=== PATIENT | female | born 1985 | race Caucasian/White ===

== ENCOUNTER 2020-06-28 09:56 | Outpatient (REF) | payer MEDICAID, SELFPAY ==
[2020-06-29 15:42] LABS: COVID-19 RT-PCR UVMMC Result Negative (Negative)
== END 2020-06-28 09:57 | disposition home or self-care (01) ==
LOC: NCHCN 09:56
PROVIDERS: PCP Internal Medicine; Visit Provider Internal Medicine
DX: Z20.822 Contact with and (suspected) exposure to COVID-19 (principal)
CPT/HCPCS: U0003

== ENCOUNTER 2023-08-28 16:51 | Outpatient (REF) | payer MEDICAID, SELFPAY ==
--- NOTE | 2023-08-28 15:15 | PAPFT_PTH ---
PATIENT: Rylie Gabriel [facility] U#:[id number] AGE/SX: 38/F ROOM: RE08/28/[address]: Dom Queen : 1985 BED: DIS: 08/28/2023 SPEC #: [id number] RECD: 08/28/23 18:36 STATUS: MAK REBlanca #: [id number] ELIDA: 08/28/23 15:[address]: Dom Queen DEPT: [facility] Cytology RECD BY: Roula Shaw Tissues: 1 - CX/ENDOCX FOR PAP SMEARS Procedures: PAP THIN PREP/UVM Screening HPV DNA PROBE Comments: [id number]
[2023-08-28 18:50] LABS: Abs Immature Grans 0.05 10^3/uL (0.0-0.06); Absolute Basophil Count 0.04 10^3/uL (0.0-0.2); Absolute Eosinophil Count 0.09 10^3/uL (0.0-0.7); Absolute Lymphocyte Count 1.66 10^3/uL (1.2-3.4); Absolute Monocyte Count 0.56 10^3/uL (0.1-0.8); Absolute Neutrophil Count 6.91 10^3/uL (1.2-6.7); Basophils % 0.4 %; HCT 41.2 % (36.0-46.0); HGB 13.9 g/dL (11.2-15.7); Immature Grans % 0.5 %; Lymphocytes % 17.8 %; MCH 30.5 pg (27.0-33.0); MCHC 33.7 % (32.0-36.0); MCV 90 fL (80-95); MPV 9.2 fL (8.0-11.0); Neutrophils % 74.3 %; Platelet Count 285 10^3/uL (130-400); RBC 4.56 10^6/uL (3.93-5.22); RDW 12.3 % (11.7-14.6); RDW-SD 40.5 fL; WBC 9.31 10^3/uL (4.4-10.8)
[2023-08-28 19:11] LABS: ALT 33 U/L (14-59); AST 17 U/L (15-37); Albumin 4.1 g/dL (3.4-5.0); Alkaline Phosphatase 89 U/L (46-116); Anion Gap 9.7 mmol/L (3-11); BUN 16 mg/dL (7-18); Bilirubin, Total 0.3 mg/dL (0.2-1.0); CO2 28.3 mmol/L (21.0-32.0); CREATININE 0.9 mg/dL (0.55-1.02); Calcium 9.1 mg/dL (8.5-10.1); Calculated LDL 97 mg/dL (<100); Chloride 103 mmol/L (98-107); Cholesterol 181 mg/dL (<200); Glucose 121 mg/dL (74-106); HDL Cholesterol 55 mg/dL (40-60); Potassium 3.8 mmol/L (3.5-5.1); Sodium 141 mmol/L (136-145); TSH 1.89 uIU/Ml (0.36-3.74); Total Protein 8.1 g/dL (6.4-8.2); Triglyceride 148 mg/dL (<150)
[2023-09-01 14:06] LABS: dsDNA Ab, IgG <22.0 IU/mL (<27.0)
[2023-09-01 14:52] LABS: ANA Interpretation Negative (Negative)
== END 2023-08-28 16:52 | disposition home or self-care (01) ==
LOC: NCHCN 16:51
PROVIDERS: PCP Internal Medicine; Visit Provider Internal Medicine
DX: Z51.81 Encounter for therapeutic drug level monitoring (principal); L93.0 Discoid lupus erythematosus
CPT/HCPCS: 80053; 80061; 88142; 84443; 85025; 86038; 86225; 87624

== ENCOUNTER 2024-06-15 20:04 | Emergency (ER) | payer MEDICAID, SELFPAY ==
[2024-06-15 20:07] VITALS: BP 97/56; PULSE 84; RESP 21; TEMP 36.4; O2SAT 97
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
[2024-06-16 00:20] LABS: Bilirubin Negative (Negative); Blood Trace-intact (Negative); Clarity Clear (Clear); Glucose Negative (Negative); Ketones Negative (Negative); Leukocyte Esterase Trace (Negative); Nitrite Negative (Negative); Specific Gravity <= 1.005 (1.005-1.025); Urobilinogen 0.2 mg/dL (Up to 0.2)
[2024-06-16 00:23] LABS: *AMPHETAMINES SCREEN URINE Negative (Negative); *BARBITURATES SCREEN URINE Negative (Negative); *BENZODIAZEPINES SCREEN URINE Negative (Negative); Cannabinoids THC Negative (Negative); Cocaine Screen,Urine Negative (Negative); METHADONE URINE SCREEN Negative (Negative); OPIATES URINE SCREEN Negative (Negative)
[2024-06-16 00:25] LABS: Tricyclic Antidepressants Negative (Negative)
[2024-06-16 00:31] LABS: Bacteria Rare HPF (Negative); C & S Indicated? No; Casts Negative LPF (Negative); Crystals Negative HPF (Negative); Epithelial Cells Few HPF (Negative); Mucus Negative (Negative); RBC 0-2 HPF (0-2); WBC 0-2 HPF (0-5)
[2024-06-16] MEDS: Calcium Carbonate *TUMS* 500 MG CHEW PO ×2 (01:19→19:30)
[2024-06-16] MEDS: QUEtiapine 50 MG TAB PO (01:27)
--- NOTE | 2024-06-16 06:46 | ED.PROG_ITS ---
Date of service: 06/16/24 Time of Service: 06:46 Medical Decision Making Patient presenting with history of acute psychotic break in the past now having recurrent symptoms. She is very paranoid at this time. She has not been sleeping for days. She is currently voluntary. Telepsych consult has been placed. She did take Seroquel last night for sleep. No issues on my shift. Quality:SDOH Health Related Social Needs: Health related social needs feeling lonely/isolated (Z 60.8) Discharge Plan Discharge Details Chief Complaint: PsychEval Clinical Impression: Paranoid psychosis Primary Care Provider: Dom Queen ED Provider: Dom Cobb [place] Meds and New Rx's Prescriptions: No Action zinc Tablet,Chewable 1 tab PO DAILY cholecalciferol (vitamin D3) [Vitamin D3] 25 mcg (1,000 unit) tablet 25 mcg PO DAILY
--- NOTE | 2024-06-16 06:55 | ED.PROG_ITS ---
Date of service: 06/16/24 Time of Service: 07:36 Medical Decision Making This is a 39-year-old female patient with a history of paranoid psychosis, presenting for evaluation of recurrence of the symptoms in the setting of an anniversary of a traumatic event. At the time that I took over her care she had been medically cleared, was awaiting evaluation by social work. She did take a nighttime Seroquel for sleep, but has otherwise not required acute interventions. I did provide her with some PRNs, including melatonin, Tylenol, and Zofran. She remains voluntary with a plan to go inpatient, and was signed out to the oncoming provider prior to final disposition. Imelda Mcdermott MD Medical Records Medical records reviewed: Yes I reviewed the patient's medical records. Lab Data Lab results reviewed: Yes I reviewed the patient's lab results. Quality:SDOH Health Related Social Needs: Health related social needs feeling lonely/isolated (Z 60.8) Discharge Plan Discharge Details Chief Complaint: PsychEval Clinical Impression: Paranoid psychosis Primary Care Provider: Dom Queen ED Provider: Imelda Mcdermott Home Meds and New Rx's Prescriptions: No Action zinc Tablet,Chewable 1 tab PO DAILY cholecalciferol (vitamin D3) [Vitamin D3] 25 mcg (1,000 unit) tablet 25 mcg PO DAILY
[2024-06-16 10:27] LABS: Abs Immature Grans 0.02 10^3/uL (0.0-0.06); Absolute Basophil Count 0.03 10^3/uL (0.0-0.2); Absolute Eosinophil Count 0.06 10^3/uL (0.0-0.7); Absolute Lymphocyte Count 1.31 10^3/uL (1.2-3.4); Absolute Monocyte Count 0.56 10^3/uL (0.1-0.8); Absolute Neutrophil Count 5.98 10^3/uL (1.2-6.7); Basophils % 0.4 %; Eosinophils % 0.8 %; HCT 39.6 % (36.0-46.0); HGB 13.6 g/dL (11.2-15.7); Immature Grans % 0.3 %; Lymphocytes % 16.5 %; MCH 30.4 pg (27.0-33.0); MCHC 34.3 % (32.0-36.0); MCV 88 fL (80-95); MPV 8.8 fL (8.0-11.0); Platelet Count 259 10^3/uL (130-400); RBC 4.48 10^6/uL (3.93-5.22); RDW 12.3 % (11.7-14.6); RDW-SD 39.8 fL; WBC 7.96 10^3/uL (4.4-10.8)
[2024-06-16 10:53] LABS: ALT 31 U/L (14-59); AST 20 U/L (15-37); Alkaline Phosphatase 96 U/L (46-116); Anion Gap 8.4 mmol/L (3-11); BUN 10 mg/dL (7-18); Bilirubin, Total 0.68 mg/dL (0.2-1.0); CO2 28.6 mmol/L (21.0-32.0); CREATININE 0.8 mg/dL (0.55-1.02); Calcium 9.4 mg/dL (8.5-10.1); Chloride 106 mmol/L (98-107); ETHANOL BLOOD < 3.0 mg/dL (<10); Estimated GFR 95.46 (mL/min/1.73m2); Glucose 100 mg/dL (74-106); Potassium 3.7 mmol/L (3.5-5.1); Sodium 143 mmol/L (136-145); TSH (W/Ref FT4) 0.78 uIU/mL (0.36-3.74)
--- NOTE | 2024-06-16 14:41 | MHPN_ITS ---
Date of service: 06/16/24 Time of Service: 11:56 PHQ-9 Over the last 2 weeks, how often have you been bothered by any of the following problems? 1. Little interest or pleasure in doing things: not at all 2. Feeling down, depressed, or hopeless: not at all 3. Trouble falling or staying asleep, or sleeping too much: more than half the days 4. Feeling tired or having little energy: not at all 5. Poor appetite or overeating: not at all 6. Feeling bad about yourself - or that you are a failure or have let yourself and your family down: not at all 7. Trouble concentrating on things, such as reading the newspaper or watching television: more than half the days 8. Moving or speaking so slowly that other people could have noticed? - Or the opposite - being so fidgety or restless that you have been moving around a lot more than usual: more than half the days 9. Thoughts that you would be better off or of hurting yourself in some way: not at all Total score: 6 If you checked off any problems, how difficult have these problems made it for you to do your work, take care of things at home, or get along with other people?: somewhat difficult Source: Developed by Drs. Dom Dalal, Roberta Nascimento, Ned Thorne and colleagues, with an educational christopher from [employer]. Suicide Severity Rate CSSRS Have you wished you were or wished you could go to sleep and not wake up?: No Have you actually had any thoughts of killing yourself?: No CSSRS2 Have you been thinking about how you might do this?: No Have you had these thoughts and had some intention of acting on them?: No Have you started to work out or worked out the details of how to kill yourself? Do you intend to carry out this plan?: No CSSRS3 Have you ever done anything, started to do anything or prepared to do anything to end your life?: No CSSRS4 Was this within the past three months?: No Screening Score Total Score: 0 Screening: Negative Mental Health Emergency Note Release [facility] release signed:: Yes Reason for Visit Mrs Gabriel is a 39 year old single female who resides with her seven year old song and longtime partner. The client states that she ate cereal for breakfast. The client reports being able to sleep the previous night, but that doors slamming is hard and has kept her up. The client denies SI and HI. The client states she is still seeking voluntary placement. The client states wanting to be involved in her treatment plan. The client states wanting a white noise machine. This clinician reported this want to both the [facility] b nurses and the critical care paramedic. This client will wait placement in zone . In the last 2 weeks has the pt presented for ES prior to today?: No Client Information Client is: Adult Outpatient Well Housed: Yes Non Suicidal Self Injury Current: No History: No Safety Risk/Harm to Self or Others Current Ideation to Harm Self or Others: No Risk: Does risk to harm exist?: No Risk: N/A Duty to warn indicated: No Asssessment/Mental Status Appearance: Unremarkable Attitude: Cooperative and Friendly Behavior: Unremarkable Speech: Normal Affect: Normal Mood: Anxious Thought process: Unremarkable Hallucinations: No Delusions: No Attention: Unremarkable Perception: Not impaired Orientation: Fully orientated Memory: Intact Insight: Fair Judgement: Fair Neurovegetative Symptoms Sleep: Increase Appetitie: No change Interests: No change Energy: No change Libido: Not applicable Substance Use: Do you use nicotine?: No Have you used substances in the last 7 days?: No Additional Issues: Assaultive/Threatening Behavior: No Medical Concerns: No Client engaged in active self harm w/weapon: No Threatening to run away: No Child reported abuse/neglect: No Voluntarily presenting for services: Yes Domestic violence is a concern: No Extreme Psychosis or extreme behavior is present: Yes Impression Mrs Gabriel is a 39 year old single female who resides with her seven year old [employer] and longtime partner. The client states that she ate cereal for breakfast. The client reports being able to sleep the previous night, but that doors slamming is hard and has kept her up. The client denies SI and HI. The client states she is still seeking voluntary placement. The client states wanting to be involved in her treatment plan. The client states wanting a white noise machine. This clinician reported this want to both the [facility] b nurses and the critical care paramedic. This client will wait placement in [facility]. Plan/Disposition Recommended Disposition: Hospitalization facilities contacted. Plan: Mrs Gabriel is a 39 year old single female who resides with her seven year old song and longtime partner. The client states that she ate cereal for breakfast. The client reports being able to sleep the previous night, but that doors slamming is hard and has kept her up. The client denies SI and HI. The client states she is still seeking voluntary placement. The client states wanting to be involved in her treatment plan. The client states wanting a white noise machine. This clinician reported this want to both the [facility] b nurses and the critical care paramedic. This client will wait placement in [facility]. Reports/communication Outcome discussed with: ED/Personnel
--- NOTE | 2024-06-16 15:00 | CMSP_ITS ---
Date of service: 06/16/24 Time of Service: 15:00 Care Management Safety Plan Status Status: Voluntary Reason for Wait Reason for Wait: Inpatient Admission Safety Plan Safety Plan: VOLUNTARY FOR INPATIENT PSYCHIATRIC STABILIZATION.? Patient is appropriate in all interactions since arriving at [facility]; Pt has demonstrated appropriate coping and communication skills, has articulated her needs and concerns and is fully engaged during staff interactions. Safety plan has been established with patient, and care team, to adhere to patient goals, identify restrictions based on behavioral status, address nutrition, and determine allowed personal belongings, tools for hygiene and personal care. Determine level of activity including ambulation, level of supervision, visitors, and determine privileges based on behaviors and level of engagement by pt. VOLUNTARY SAFETY PLAN: 1. Will remain on suicide precautions, in paper clothes 2. Will remain in Zone B under direct supervision of one-on-one staff at all times provided by [employer]; ANGI, PROMOTIONS SPECIALIST certified flight instructor. 3. May have paper cups, plates, finger foods as well as a cardboard spoon with which to eat meals. 4. Follow [facility] Management of the Admitted Behavioral Health Patient policy. 5. Shower available in Zone B without restriction. 6. Personal belongings-soft items permitted at RN discretion. 7. Visitors-none at this time. 8. Activities: soft cart items approved per RN discretion. 9.? Bathroom available in Zone B without restriction. 10. Phone: limited to [facility] cordless phone at RN discretion. Due to VOLUNTARY status, if patient wishes to leave [facility], staff will contact [facility] Crisis Screener ([phone]) and Ambulance Driver Paramedic ([phone]) as soon as possible. In the event of elopement, notify [facility] Police ([phone]).
--- NOTE | 2024-06-16 18:13 | NUR.NOTE ---
Sister in law into visit, asked if she could give staff ear plugs for pt to use at night r/t noise on unit and detriment to pt's mental health. After long conversation with pt and family, stated that for now pt would be able to have them understanding the risks/benefits, pt denies SI, states I have no intention of misusing items, will return them to RN station in morning and will not divulge to other pt's that I have them', pt in understanding that at any time other staff may take items away.
[2024-06-16] MEDS: QUEtiapine 25 MG TAB 50 MG PO (19:29)
[2024-06-16] MEDS: Melatonin 3 MG TAB PO (19:30)
--- NOTE | 2024-06-17 06:42 | ED.PROG_ITS ---
Date of service: 06/17/24 Time of Service: 06:42 Medical Decision Making Patient remains in ED pending voluntary psychiatric admission. No issues on the overnight shift. She is medically cleared. Quality:SDOH Health Related Social Needs: Health related social needs feeling lonely/isolated (Z 60.8) Discharge Plan Discharge Details Chief Complaint: PsychEval Clinical Impression: Paranoid psychosis Primary Care Provider: Dom Queen ED Provider: Dom Cobb [place] Meds and New Rx's Prescriptions: No Action zinc Tablet,Chewable 1 tab PO DAILY cholecalciferol (vitamin D3) [Vitamin D3] 25 mcg (1,000 unit) tablet 25 mcg PO DAILY
[2024-06-17 07:14] VITALS: BP 133/79; PULSE 98; RESP 18; TEMP 37; O2SAT 98
--- NOTE | 2024-06-17 09:35 | PDOC.CMSAFE ---
Date of service: 06/17/24 Time of Service: 09:35 Care Management Safety Plan Status Status: Voluntary Reason for Wait Reason for Wait: Inpatient Admission Safety Plan Safety Plan: VOLUNTARY FOR INPATIENT PSYCHIATRIC STABILIZATION.? Patient is appropriate in all interactions since arriving at [facility]; Pt has demonstrated appropriate coping and communication skills, has articulated his or her needs and concerns and is fully engaged during staff interactions. Safety plan has been established with patient, and care team, to adhere to patient goals, identify restrictions based on behavioral status, address nutrition, and determine allowed personal belongings, tools for hygiene and personal care. Determine level of activity including ambulation, level of supervision, visitors, and determine privileges based on behaviors and level of engagement by pt. SAFETY PLAN: 1. Will remain on suicide precautions, in paper clothes 2. Will remain in room under direct supervision of one-on-one staff at all times provided by [employer]; ANGI, STATEMENT PROCESSOR salesperson trailers and motor homes. 3. May have paper cups, plates, finger foods as well as a cardboard spoon with which to eat meals. 4. Follow [facility] Management of the Admitted Behavioral Health Patient policy. 5. Comfort bath system, shower permitted with escort at RN discretion. 6. Personal belongings-soft items permitted at RN discretion. 7. Visitors-none at this time. 8. Activities: soft cart items approved per RN discretion. 9.? Bathroom privileges with escort in the ED. 10. Phone: limited to cordless phone at RN discretion. Due to VOLUNTARY status, if patient wishes to leave [facility], staff will contact [facility] Crisis Screener ([phone]) and On-Call Steam Drier Operator ([phone]) as soon as possible. In the event of elopement, notify [facility] Police ([phone]). Patient is currently voluntarily at [facility] and seeking inpatient admission when a bed becomes available. [facility] Frontline Health And Social Care Teacher will continue seeking placement. Please contact the 2Nd Grade Teacher Steam Drier Operator ([phone]) and [facility] Health And Social Care Teacher ([phone]) for any needed changes in the Safety Plan. Safety plan has been provided to interdepartmental care team.
--- NOTE | 2024-06-17 16:03 | CMDISCH_ITS ---
Date of service: 06/17/24 Time of Service: 15:00 Care Management Discharge Plan Discharge Plan: Rylie was transferred to [facility] today. She was transported via [facility]. SDOH Health Related Social Needs: Health related social needs feeling lonely/isolated (Z 60.8)
--- NOTE | 2024-06-17 16:07 | MHPN_ITS ---
Date of service: 06/17/24 Time of Service: 10:30 Mental Health Emergency Note Release [facility] release signed:: Yes Reason for Visit Client is seeking inpatient placement. In the last 2 weeks has the pt presented for ES prior to today?: No Client Information Client is: Adult Outpatient Well Housed: Yes Non Suicidal Self Injury Current: No History: yes, Client had previously reached a manic episode. Safety Risk/Harm to Self or Others Current Ideation to Harm Self or Others: No Risk: Does risk to harm exist?: No Risk: N/A Duty to warn indicated: No Asssessment/Mental Status Appearance: Well groomed Attitude: Cooperative and Friendly Behavior: Unremarkable Speech: Normal Affect: Normal Mood: Sad, Stressed and Depressed Thought process: Unremarkable and Goal directed Hallucinations: No evidence Delusions: No evidence Attention: Unremarkable Perception: Not impaired Orientation: Fully orientated Insight: Good Judgement: Good Neurovegetative Symptoms Sleep: Increase Appetitie: Increase Interests: Increase Energy: Increase Substance Use: Do you use nicotine?: No Have you used substances in the last 7 days?: No Additional Issues: Assaultive/Threatening Behavior: No Medical Concerns: No Client engaged in active self harm w/weapon: No Threatening to run away: No Child reported abuse/neglect: No Voluntarily presenting for services: Yes Domestic violence is a concern: No Extreme Psychosis or extreme behavior is present: No Impression The client is known to [facility]. The client is not known to this aligner typewriter. She is a [age]-year-old single female. She lives at home with her longtime partner and their 7-year-old son. The client was cooperative during the assessment and incredibly insightful as to her thoughts and feelings. Client reports being able to sleep the previous night, but that doors slamming is hard, other patients were causing commotion and has kept her up. The client denies SI and HI. The client states she is still seeking voluntary placement to gain more clarity in her mindset and how to gain better ability to manage it. Client states wanting to be involved in her treatment plan, but fearful due to her involuntary inpatient care last year when she had her mental break. Client will wait placement in Zone [place]. Resources Reosurces reviewed and given:: Other Plan/Disposition Recommended Disposition: Hospitalization facilities contacted. Plan: Client is going inpatient. Person reported agreement to plan: Yes Reports/communication Outcome discussed with: ED/Personnel
--- NOTE | 2024-06-17 18:41 | ED.PROG_ITS ---
Date of service: 06/17/24 Time of Service: 18:42 Medical Decision Making Patient signed out to me by my colleague Dr. Cobb. Pending placement. Discussed the case with Yana Lee at [facility], patient has been accepted there for transfer. Discussed this with the patient, we discussed her concerns, including fear of driving. After long discussion together, fevers have been alleviated, and supplemental materials have been provided to utilize on the way down. Patient stable for transfer. I have extensively reviewed the treatment plan with the patient. I have addressed all patient concerns at this time. I have also discussed the plan with the admitting physician and they agree with the current assessment and plan and have agreed to assume responsibility for the patient. All parties demonstrate verbal understanding and agreement with our assessment and plan at this time. The documentation in this chart was dictated using [employer] dictation software. Please excuse any dictation errors. Quality:SDOH Health Related Social Needs: Health related social needs feeling lonely/isolated (Z 60.8) Discharge Plan Disposition Patient Disposition: Psychiatric Hospital/Unit Specific Psychiatric Facility: [facility] Condition: Good Discharge Details Chief Complaint: PsychEval Clinical Impression: Paranoid psychosis Primary Care Provider: Dom Queen ED Provider: Aj Burnette Home Meds and New Rx's Prescriptions: No Action zinc Tablet,Chewable 1 tab PO DAILY cholecalciferol (vitamin D3) [Vitamin D3] 25 mcg (1,000 unit) tablet 25 mcg PO DAILY
== END 2024-06-17 15:02 ==
PROVIDERS: Physician Assistant; Emergency Provider Student in an Organized Health Care Education/Training Program; PCP Internal Medicine
DX: Z60.8 Other problems related to social environment; F22 Delusional disorders
CPT/HCPCS: 00123; 80053; 80307; 81025; 96127; 99285; 80320; 81003; 81015; 84443; 85025

== ENCOUNTER 2024-10-21 14:07 | Outpatient (REF) | payer MEDICAID, SELFPAY ==
[2024-10-21 19:36] LABS: Calculated LDL 85 mg/dL (<100); Cholesterol 168 mg/dL (<200); HDL Cholesterol 44 mg/dL (>or=50); Hemoglobin A1C 4.8 % (<5.7); TSH 1.71 uIU/mL (0.36-3.74); Triglyceride 199 mg/dL (<150)
== END 2024-10-21 14:08 | disposition home or self-care (01) ==
LOC: NCHCN 14:07
PROVIDERS: PCP Internal Medicine; Visit Provider Internal Medicine
DX: E66.3 Overweight (principal)
CPT/HCPCS: 80061; 83036; 84443